=== PATIENT | female | born 1970 | race Caucasian/White ===

== ENCOUNTER 2018-03-10 14:46 | Emergency (ER) | payer MEDICAID ==
[~2018-03-10] VITALS: Ht 162.6 cm; Wt 111.6 kg
[2018-03-10 15:47] LABS: MICROSCOPIC NOT IND
[2018-03-10] MEDS ORDERED: MAALOX/HYOSCYAMINE/LIDOCAINE 45 ML BTL PO ONE (16:00)
[2018-03-10] MEDS ORDERED: ONDANSETRON ODT 4 MG PO ONE (16:00)
[2018-03-10] MEDS ORDERED: MAALOX/HYOSCYAMINE/LIDOCAINE 45 ML BTL ONE (16:19)
[2018-03-10] MEDS ORDERED: ONDANSETRON ODT 4 MG ONE (16:19)
[2018-03-10 16:28] LABS: ALBUMIN 4.1 g/dL (3.4-5.0); ANION GAP 10 mmol/L (5-15); CALCIUM 8.7 mg/dL (8.5-10.1); CHLORIDE 103 mmol/L (98-107)
[2018-03-10 16:33] LABS: ALANINE AMINOTRANSFERASE 70 U/L (12-78); ALKALINE PHOSPHATASE 123 U/L (45-117); BILIRUBIN,TOTAL 0.5 mg/dL (0.2-1.0); CREATININE 0.67 mg/dL (0.55-1.02); TOTAL PROTEIN 7.5 g/dL (6.4-8.2)
[2018-03-10 16:53] LABS: MD YES; MEAN CORPUSCULAR HEMOGLOBIN 27.9 pg (27.0-34.8); MEAN CORPUSCULAR HGB CONC 32.5 g/dL (32.4-35.8); MEAN CORPUSCULAR VOLUME 86.1 fL (80-100); PLATELET COUNT 341 x10^3/uL (130-400); RED BLOOD COUNT 5.11 x10^6/uL (3.82-5.3); RED CELL DISTRIBUTION WIDTH 23.5 % (9.6-15.2)
[2018-03-10 16:58] LABS: ANISOCYTOSIS 2+; BAND#(MANUAL) 0.31 x10^3/uL; BANDS%(MANUAL) 3 % (0-7); EOS#(MANUAL) 0.31 x10^3/uL (0.0-0.4); EOS% (MANUAL) 3 % (1-7); HYPOCHROMIA 2+; LYMPH#(MANUAL) 1.22 x10^3/uL (1-3.4); LYMPHS% (MANUAL) 12 % (22-44); MICROCYTOSIS 1+; MONOS% (MANUAL) 1 % (2-9); POLYCHROMASIA 1+; SEG#(MANUAL) 8.26 x10^3/uL (1.8-6.8); SEGS% (MANUAL) 81 % (42-75)
[2018-03-10 16:59] LABS: <PLATELET ESTIMATE> ADEQUATE; GIANT PLATELETS 1+; TOXIC GRAN 1+
[2018-03-10] MEDS ORDERED: KETOROLAC 30 MG/1 ML IM ONE (17:00)
[2018-03-10] MEDS ORDERED: KETOROLAC 30 MG/1 ML ONE (17:04)
[2018-03-10 17:20] LABS: HCG UR SG 1.004 (1.003-1.030)
[2018-03-10 17:33] VITALS: BP 124/70
== END 2018-03-10 17:36 | disposition home or self-care (01) ==
LOC: ED 15:30
DX: R10.13 Epigastric pain (principal); R10.11 Right upper quadrant pain; E11.9 Type 2 diabetes mellitus without complications; E78.00 Pure hypercholesterolemia, unspecified; F32.9 Major depressive disorder, single episode, unspecified; I10 Essential (primary) hypertension; Z90.49 Acquired absence of other specified parts of digestive tract
CPT/HCPCS: 36415; 80053; 81003; 81025; 83690; 85025; 96372; 99284; J1885; Q0162